=== PATIENT | male | born 1980 | race Two or more races ===

== ENCOUNTER 2016-09-26 19:48 | Day surgery (SDC) | payer OTHER ==
[~2016-09-26] VITALS: Ht 172.7 cm; Wt 90.5 kg
--- NOTE | ~2016-09-26 | HP ---
PATIENT'S NAME: ANAHI ELLIS [facility] AGE: 36 Y [address] ROOM: [place] [id number] LOCATION: [facility] ADMIT DATE: 09/26/2016 History & Physical DISCHARGE DATE: FAMILY PHYSICIAN: PHYSICIAN, NO ATTENDING PHYSICIAN: Shannan Gray DATE OF SERVICE: 09/26/2016 EMERGENCY ROOM EVALUATION TIME: 9:00 p.m. HISTORY OF PRESENT ILLNESS: Mr. Ellis is a 36-year-old right handed healthy male, works for the [employer], was involved in a work injury at 7:00 p.m. 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 He was using a power builder developer. This power builder developer was only water, developed 15,000 pounds per square inch in the pressure stream, cut through the rubber boot on his left foot, has an open wound. No other injuries. MEDICATIONS: None. ALLERGIES: TO PENICILLIN. PAST MEDICAL HISTORY: Healthy. SOCIAL HISTORY: Does not smoke. No alcohol tonight. No drug abuse. REVIEW OF SYSTEMS: Unremarkable. FAMILY MEDICAL HISTORY: Unremarkable. PERSONAL AND SOCIAL HISTORY: Lives in the [facility]. He is , has 2 children. He is from [place] originally, but speaks good E[place]an. He has been working for the [employer] for approximately 4 months. He is anxious to get back to work. PHYSICAL EXAMINATION: PATIENT'S NAME: ANAHI ELLIS [facility] AGE: 36 Y [address] ROOM: [address] [place] [id number] LOCATION: [facility] ADMIT DATE: 09/26/2016 History & Physical DISCHARGE DATE: FAMILY PHYSICIAN: PHYSICIAN, NO ATTENDING PHYSICIAN: Shannan Gray GENERAL: Healthy male, no acute distress. HEENT: Hears and sees. NECK: Nontender. BACK: Nontender. HEART: Pulse rate is regular. LUNGS: Able to take in a deep breath without difficulty. ABDOMEN: Soft, nontender. EXTREMITIES: Left foot, there is a 4 cm necrotic open wound, goes through the subcutaneous tissues on the lateral side of the foot about the distal metatarsal. Does not appear to go down to bone. There is no tightness of the soft tissues in the compartments of the foot. There is no pain on passive stretch. The foot is neurovascularly intact. DIAGNOSTIC STUDIES: X-rays, left foot, no fracture or dislocation. Soft tissue swelling in the area of the wound. ASSESSMENT AND PLAN: dried fruit washer injury to the left foot. No clinical suggestion of compartment syndrome at this time. Luckily, this was just water. There was no grease or paint, but there is necrotic tissue. To the operating room for debridement of the necrotic wound. We will irrigate. We will give antibiotics. We will update his tetanus, and we will observe overnight. Will most likely heal with dressing changes. Risks, benefits, and alternatives have been discussed. SHANNAN GRAY MD DPM/cl /[id number] D: [id number] T: [id number] HISTORY & PHYSICAL
--- NOTE | ~2016-09-26 | ER ---
PATIENT'S NAME: ANAHI ELLIS [facility] AGE: 36 Y [address] ROOM: [place] [address] LOCATION: [facility] ADMIT DATE: 09/26/2016 ER/Outpatient Report DISCHARGE DATE: FAMILY PHYSICIAN: PHYSICIAN, NO ATTENDING PHYSICIAN: Judah Gray CHIEF COMPLAINT: Foot injury. 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 He has had significant pain and swelling since the onset. Accident happened this evening just before arrival plus transport time. He states that he is not up-to-date on his tetanus. The patient and coworker are explicit that the machine only carries water and is never carried chemicals. The patient states that he is allergic to some penicillin but otherwise denies any medical problems. PAST MEDICAL HISTORY: Documented on the record and reviewed by me. SOCIAL HISTORY: Documented on the record and reviewed by me. MEDICATIONS: Documented on the record and reviewed by me. ALLERGIES: DOCUMENTED ON THE RECORD AND REVIEWED BY ME. REVIEW OF SYSTEMS: All systems reviewed and negative except as noted in the HPI. PHYSICAL EXAMINATION: VITAL SIGNS: Blood pressure 196/94, pulse 72, respiratory rate 16, temperature 98.2, SpO2 is 98% on room air. Pain is 10/10. GENERAL: Age-appropriate male. No obvious pain or distress, sitting upright on the exam table with anxious appearance. NEUROLOGIC: The patient is awake and alert. GCS is 15. No focal deficits. No asymmetry on exam. HEENT: Normocephalic, atraumatic. Eyes, PERRL. Oropharynx is clear. NECK: Supple. Trachea is midline. CHEST: Heart is regular rate and rhythm with no murmurs. LUNGS: Clear to auscultation bilateral. No rhonchi, wheezes, or rales. PATIENT'S NAME: AANHI ELLIS [facility] AGE: 36 Y [address] ROOM: [place] [address] LOCATION: [facility] ADMIT DATE: 09/26/2016 ER/Outpatient Report DISCHARGE DATE: FAMILY PHYSICIAN: PHYSICIAN, NO ATTENDING PHYSICIAN: Judah Gray ABDOMEN: Soft, nontender, and nondistended. No rebound, guarding, or tenderness. BACK: Normal inspection and palpation. EXTREMITIES: Warm and well perfused with no abnormalities except for the left foot. There is a small 1.3 x 0.8 cm tissue defect in the lateral aspect of the MTP. There is swelling of the lateral aspects of the foot and the plantar aspect of the foot. No crepitus is appreciated throughout the foot. The patient is able to wiggle the toes and flex and extend at the ankle without difficulty and denies any sensory deficits. SKIN: Otherwise warm, dry, and intact. LABORATORY DATA AND X-RAYS: Plain films of the involved extremity reveal significant subcutaneous gas versus fluid throughout the foot. Nothing proximal to the ankle. No other labs were obtained. IMPRESSION: High-pressure injection injury through the boot of the left foot. EMERGENCY DEPARTMENT COURSE: The patient seen evaluated as above. Based on presentation, concern for high- pressure injection injury. X-rays reveal no foreign material but significant soft tissue involvement. Dr. Gray was consulted and the patient's tetanus was updated. His pain was controlled with morphine and Zofran. He will be taken to the operating room for further evaluation treatment. Antibiotics will be deferred to the operating room, so as to not delay further evaluation. All questions were answered. The patient was taken the OR for further evaluation treatment by Dr. Gray, orthopedic surgeon. MD PEREZ CANTU/cl /[id number] d: 09/27/16 1223 t: 10/03/16 0951, OUTPATIENT REPORT
--- NOTE | ~2016-09-26 | OR ---
PATIENT'S NAME: ANAHI ELLIS [facility] AGE: 36 Y [address] ROOM: [address] [address] LOCATION: [facility] ADMIT DATE: 09/26/2016 OR/Procedure Report DISCHARGE DATE: FAMILY PHYSICIAN: PHYSICIAN, NO ATTENDING PHYSICIAN: Shannan Gray SURGEON: Shannan Gray MD SR. DIRECTOR: DATE OF PROCEDURE: 09/26/2016 DIAGNOSES: 1. Water glass washer and carrier wound, left foot. 2. Irrigation and debridement, left foot. 3. Pack wound with half-strength Betadine. ANESTHESIA: General and local. INDICATIONS: Mr. 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 He was wearing heavy industrial rubber boots. The spray went across his left boot, cut through the boot with a wound in his left foot. Left foot wound lateral side of the foot into muscle. There was necrotic tissue and there was debris within the wound, to the operating room for irrigation and debridement. His tetanus has been updated. He has received clindamycin. DESCRIPTION OF PROCEDURE: Taken to the operating room, general anesthetic, tourniquet high about the left thigh. Left leg prepared with Betadine scrubbing followed by Betadine painting. Leg draped in sterile fashion. Tourniquet not inflated. The wound approximately 1 cm x 4 cm. Necrotic edges were trimmed. There was some debris from the boot in the wound. This was carefully meticulously removed. Nonviable muscle was judiciously debrided. Irrigated with 3 L of pulse lavage. All remaining tissue was viable. Compartments were all soft. Half-strength Betadine packed in the wound, placed in a bulky dressing with Kerlix, and a hard-soled postop shoe. Procedure was done without complication. SHANNAN GRAY MD DPM/rubénl /[id number] d: 09/27/16 0534 t: 09/27/16 1832, OPERATIVE SUMMARY
--- NOTE | ~2016-09-26 | DS ---
PATIENT'S NAME: ANAHI ELLIS [facility] AGE: 36 Y [address] ROOM: [address] [address] LOCATION: [facility] ADMIT DATE: 09/26/2016 Discharge Summary DISCHARGE DATE: 09/27/2016 FAMILY PHYSICIAN: PHYSICIAN, NO ATTENDING PHYSICIAN: Judah Kaufman Discharged from Observation. HISTORY AND HOSPITAL COURSE: Mr. Ellis, 36-year-old male, work injury on the . High-pressure wound, left foot. It was only water, no grease or paint or oil. Wound on the lateral side of the foot with some necrotic tissue and debris in the wound. No evidence of compartment syndrome. He was taken to the operating room. Careful meticulous debridement, all pieces of debris were removed, and a minimal amount of nonviable muscle was removed and skin edges that were necrotic were trimmed. Wet-to-dry dressing. Pain was easily controlled. He was mobilized in a hard-soled shoe. Ate without nausea and vomiting. Voided without difficulty. Wound was checked on day post trauma day 1, clean, no erythema, no purulence, no additional necrotic tissue, compartments are all soft. No pain on passive stretch. No calf pain. Negative Homans. No other injuries. Ready for discharge to home. He is from the [facility]. He is from the [place] [facility]. We talked to the surgeons of [facility], Dr. Joey Huddleston, general surgeon, will see the patient in followup. DISCHARGE INSTRUCTIONS: Understands that the patient will be doing normal saline wet-to-dry dressings twice a day. May be a candidate for a short period of a wound VAC. No need for antibiotics and discharged but we will give Lovenox to minimize the chance for DVT, specially with a long car ride. [place] or Tylenol for pain. Regular diet. Elevate when possible. Hard-soled shoe when up. Also note that he is unable to work at this time. He will call my office for any problems, questions, or concerns. JUDAH KAUFMAN MD DPM/cl /[id number] d: 09/27/162220 t: 09/28/16 1331, DISCHARGE SUMMARY
[2016-09-27 06:15] LABS: BARBITURATE NEGATIVE (NEGATIVE); COCAINE NEGATIVE (NEGATIVE)
[2016-09-27 06:19] LABS: AMPHETAMINE NEGATIVE (NEGATIVE); OPIATES POSITIVE (NEGATIVE)
[2016-09-27] MEDS ORDERED: NORCO 5-325 TA1 EACH PO (12:00)
[2016-09-27] MEDS ORDERED: LOVENOX40 MG/0.4 SUB-Q (12:10)
== END 2016-09-27 13:40 | disposition disaster alternative care site (69) ==
LOC: GACC 19:48 → GNTU 21:42 → GSDC 21:42
PROVIDERS: Orthopaedic Surgery
PROC: 0JDR0ZZ Extraction of Left Foot Subcutaneous Tissue and Fascia, Open Approach (ICD-10-PCS; principal; 2016-09-26)
DX: T70.4XXA Effects of high-pressure fluids, initial encounter (principal); Z88.0 Allergy status to penicillin; X58.XXXA Exposure to other specified factors, initial encounter; Y93.H3 Activity, building and construction
CPT/HCPCS: J0690; J1100; J1650; J2250; J2270; J2405; J3010; J3480; J7120